=== PATIENT | female | born 1935 | race Caucasian/White ===

== ENCOUNTER 2020-05-05 02:10 | Inpatient (IN) ==
[2020-05-05] MEDS ORDERED: TRIAMCINOLONE ACETONIDE 15 APPL TUBE TP PRN (10:27)
[2020-05-05] MEDS ORDERED: NITROGLYCERIN 0.4 MG/TAB BTL SL PRN (10:27)
[2020-05-05] MEDS ORDERED: DEXAMETHASONE 4 MG TABLET PO SCH (10:30)
[2020-05-05] MEDS: amLODIPine BESYLATE 5 MG TABLET PO SCH (11:14)
[2020-05-05] MEDS: LEVOTHYROXINE SODIUM 50 MCG TABLET PO SCH (11:14)
[2020-05-05] MEDS: OXYBUTYNIN CHLORIDE 5 MG TABLET PO SCH ×2 (11:15→21:34)
[2020-05-05] MEDS: ENOXAPARIN SODIUM 40 MG/0.4 ML SYRG SC SCH (11:15)
[2020-05-05] MEDS: ASPIRIN 81 MG TAB.CHEW PO SCH (11:15)
--- NOTE | 2020-05-05 18:41 | HP ---
Chief Complaint - Chief Complaint Date of Service: 05/05/20 Time of Service: 09:10 Chief Complaint: Cough with shortness of breath, tachypnea History of Present Illness: This is an 85-year-old female who presented to [facility] ER at about 2:00 in the afternoon yesterday with precordial chest pain complaints. She was nauseated and short of breath and describes a pressure in her chest as a heaviness. She took some Tums which did not help. She took a nitroglycerin which relieved her discomfort. She also took a baby aspirin and then called EMS. She does not have known coronary disease but a warehouse worker had told her just in case she should have some nitroglycerin and so she was thankful she did. She has never had an episode like this before. Duration of symptoms was about 10 minutes. Her troponin was negative and there is no acute change on her EKG. They elected to admit her for acute coronary syndrome and rule out [place]. But then they did a Covid test and found it to be positive. 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 On arrival here, she is not having any chest discomfort but she is coughing and having some shortness of breath. She believes the onset of her symptoms from a respiratory perspective occurred about 3 days ago. She has a positive D-dimer and her inflammatory markers are high. She is alert and conversant and comfortable on 2 L nasal cannula O2 which is keeping her O2 sat in the mid 90s. She is tired and sleepy from the having been up most of the night and is hungry and she had not eaten since yesterday. Medical History (Last Updated 05/05/20 @ 02:57 by Deepti Cha RN) Abnormal stress echo exercise stress echo 04/20/16, mild anteroseptal hypokinesis at peak exercise, normal LV function Acute ankle pain Adjustment disorder with mixed anxiety and depressed mood Arthritis Benign essential HTN Chronic GERD Dyspnea on exertion Echocardiogram abnormal 06/19/2014-EF 55-60% and09/21/2018- EF 55-60%, mod TR, severe pulm HTN Female genital prolapse Hyperlipidemia Hypothyroidism Kidney stones Normal nuclear stress test 09/21/2018 Open fracture of radius and ulna Left Seasonal allergies Surgical History: Surgical History (Last Updated 05/05/20 @ 02:56 by Deepti Cha RN) Enterocele Repaired 1999 H/O colonoscopy 01/27/16 and 2009 H/O cystoscopy 09/27/15 H/O esophagogastroduodenoscopy H/O hernia repair 2004 H/O lithotripsy cystoureteroscopy with lithotripsy 09/29/15 H/O oophorectomy 1977 H/O: hysterectomy 1977 History of bladder surgery 1998-bladder and anterior posterior repair History of cataract extraction with lens replacement Left eye 01/25/18, Right eye 11/30/17 Family History: Family History (Last Updated 05/05/20 @ 02:59 by Deepti Cha RN) Daughter Breast cancer Sister Pancreatic cancer Brother Colon cancer Social History: (Last Updated 05/05/20 @ 03:00 by Deepti Cha RN) Social History: household members: none Tobacco: Smoking Status: Former smoker Review Of Systems (GEN) - Review of Systems Generalized/Overall Review: Present: Weakness, Chills, Fever - No EENTM: Present: No Symptoms Reported - Have not heard the word from Respiratory: Present: No Symptoms Reported - this is typical and the hospitalist call immediately probably in the middle of as mother know still finishing up this morning's admissions about the [employer] okay Cardiac: Present: Chest Pain - Resolved Abdominal: Present: Nausea - Resolved Genitourinary: Present: No Symptoms Reported Musculoskeletal: Present: No Symptoms Reported Neurological: Present: Weakness Skin: Present: No Symptoms Reported Endocrine: Present: No Symptoms Reported Allergies/Adverse Reactions: Allergies Allergy/AdvReac Type Severity Reaction Status Date / Time ciprofloxacin AdvReac Verified 05/05/20 02:20 erythromycin base AdvReac Verified 05/05/20 02:21 hydrocodone AdvReac Vomiting Verified 05/05/20 02:21 ibuprofen [From Motrin] AdvReac Verified 05/05/20 02:22 Home Medications: HOME MEDICATIONS Amlodipine Besylate 5 mg PO DAILY 05/05/20 [Last Taken Unknown] Aspirin 81 mg PO DAILY 05/05/20 [Last Taken Unknown] Cyanocobalamin (Vitamin B-12) [Vitamin B-12] 1,000 mcg PO DAILY 05/05/20 [Last Taken Unknown] Levothyroxine Sodium [Synthroid] 50 mcg PO DAILY 05/05/20 [Last Taken Unknown] Nitroglycerin 0.4 mg SUBLINGUAL Q5MIN PRN 05/05/20 [Last Taken Unknown] Oxybutynin Chloride [Oxybutynin Chloride ER] 5 mg PO DAILY 05/05/20 [Last Taken Unknown] Simvastatin 40 mg PO HS 05/05/20 [Last Taken Unknown] Triamcinolone Acetonide [Kenalog 0.1% Cream] 1 appl TOPICAL DAILY 05/05/20 [Last Taken Unknown] Exam - Exam Vital Signs: Vital Signs - Last Taken Temp 37 C 05/05/20 18:02 Pulse 63 05/05/20 18:02 Resp 17 05/05/20 18:02 BP 156/69 H 05/05/20 18:02 Pulse Ox 93 05/05/20 18:02 Constitutional: Present: Alert, Oriented x3, Cooperative, Well developed, Well nourished, Elderly ENT Exam: Present: normal ENT inspection, hearing grossly normal, pharynx normal, TMs normal Eye Exam: bilateral eye: normal inspection, PERRL, EOMI Neck: Present: non-tender, full range of motion, supple, normal inspection Back Exam: Present: normal inspection, no CVA tenderness, no vertebral tenderness Breasts: Present: Exam deferred Respiratory: Present: chest non-tender, rhonchi, No wheezing Cardiovascular/Chest: Present: normal peripheral pulses, regular rate, rhythm, no chest tenderness, no edema, no gallop, no JVD, no murmur, no rub Peripheral Pulses: carotid (R): 2+, carotid (L): 2+, radial (R): 2+, radial (L): 2+ Abdomen: Present: Normal bowel sounds, soft, nontender, nondistended, no rebound tenderness, no hepatospenomegaly, no masses /Rectal: Present: Exam deferred Extremity: Present: normal range of motion, non-tender, normal inspection, no pedal edema, no calf tenderness, normal capillary refill Skin Exam: Present: normal color, warm/dry, no cyanosis Lymphatic: Present: no adenopathy Neurologic: Present: lead sales consultant II-XII nml as tested Appearance: Present: appropriate appearance, appropriate insight, neat, no m taylor impairment Eye contact: Present: cooperative, good eye contact, normal speech Thoughts: Present: normal thought pattern, no apparent hallucination Assessment/Plan - Narrative Narrative: 1. Admitted to SCU 3 in negative pressure room 2. Start dexamethasone 6 mg/day 3. Start enoxaparin 4. Continue usual home meds 5. Regular diet 6. Wean from oxygen as tolerated - Assessment/Plan (1) COVID-19 virus detected Problem: Acute (2) Pneumonia due to COVID-19 virus Problem: Acute (3) Dyspnea Problem: Acute Qualifiers: Dyspnea type: dyspnea on exertion Qualified Code(s): R06.00 - Dyspnea, unspecified (4) Chest pain Problem: Acute Qualifiers: Chest pain type: other chest pain Qualified Code(s): R07.89 - Other chest pain (5) Positive D dimer Problem: Acute
[2020-05-05] MEDS: SIMVASTATIN 40 MG TABLET PO SCH (21:34)
[2020-05-06] MEDS: LEVOTHYROXINE SODIUM 50 MCG TABLET PO SCH (08:02)
[2020-05-06 08:27] LABS: Hematocrit 45.4 % (37.0-47.0); Hemoglobin 13.9 gm/dL (12.5-16.0); Mean Cell Volume 95.8 fl (78-100); Mean Corpuscular Hemoglobin 29.3 pg (27-31); Mean Corpuscular Hgb Conc 30.6 g/dl (32-36); Mean Platelet Volume 8.8 fl (8-12.5); Neutrophil # 3.5 K/mm3 (1.3-6.0); Neutrophil % 59.5 % (42-75.0); Platelet Count 204 K/mm3 (150-450); Red Blood Count 4.74 M/mm3 (4.2-5.4); Red Cell Distribution Width 13.4 % (11.5-14.0); White Blood Count 5.9 K/mm3 (4.0-10.5)
[2020-05-06 08:41] LABS: ALT 17 U/L (19-67); AST 24 U/L (0-48); Albumin * 3.1 gm/dl (3.4-5.0); Alkaline Phosphatase * 51 U/L (50-170); Anion Gap 10.5 mmol/L (6.8-13.8); BUN/Creatinine Ratio 20.5 (9.0-21.6); Bilirubin, Total 0.7 mg/dL (0.0-1.1); Blood Urea Nitrogen 16 mg/dL (3-23); Ca. Corrected For Albumin 9.8 mg/dL (8.4-10.2); Calcium * 9.4 mg/dL (7.9-10.9); Carbon Dioxide 29.5 mmol/L (24-32.6); Chloride 105 mmol/L (97-106); Glucose * 89 mg/dL (70-110); Sodium 141 mmol/L (132-142); Total Protein 6.6 gm/dL (6.2-8.2)
[2020-05-06] MEDS: ENOXAPARIN SODIUM 40 MG/0.4 ML SYRG SC SCH (10:07)
[2020-05-06] MEDS: ASPIRIN 81 MG TAB.CHEW PO SCH (10:07)
[2020-05-06] MEDS: OXYBUTYNIN CHLORIDE 5 MG TABLET PO SCH ×2 (10:07→21:22)
[2020-05-06] MEDS: DEXAMETHASONE 4 MG, DEXAMETHASONE 2 MG PO SCH ×2 (10:07)
[2020-05-06] MEDS: amLODIPine BESYLATE 5 MG TABLET PO SCH (10:07)
--- NOTE | 2020-05-06 15:32 | PN ---
Subjective - Date and Time Seen Date: 05/06/20 Time: 12:45 Subjective Narrative: Analy had an uneventful night and is felt well this morning. She feels like she is breathing better and that she has not had any further chest discomfort. She is in no distress at the time of my exam. Her vital signs have been stable and she remained afebrile. The skin is warm dry and pink. Heart has a regular rate and rhythm without murmur. Lungs are clear this morning. The rales are heard yesterday seem to be gone. She has not been up to walk to see if she becomes dyspneic with exertion. Her sed rate is only 16. Her chest x-ray shows no acute cardiopulmonary circumstance. I think she may well be within the first week of her Covid infection and I have advised her that many times a second week seems to be more difficult. Nonetheless if she has a good day today and a good night tonight and does not need oxygen as she can probably be discharged to self quarantine at home. Objective - Review of Systems Generalized/Overall Review: Reports: No Symptoms Reported EENTM: Reports: No Symptoms Reported Respiratory: Reports: No Symptoms Reported, Cough, Shortness of Breath - With exertion Cardiac: Reports: No Symptoms Reported. Denies: Chest Pain - She has had no more chest pain since being in the ER in [facility] Abdominal: Reports: No Symptoms Reported Genitourinary Symptoms: Reports: No Symptoms Reported Musculoskeletal Complaints: Reports: No Symptoms Reported Neurological: Reports: No Symptoms Reported Skin: Reports: No Symptoms Reported Endocrine: Reports: No Symptoms Reported - Vitals Vitals: Last Vital Signs Temp 35.8 C L 05/06/20 11:15 Pulse 48 L 05/06/20 11:15 Resp 24 H 05/06/20 11:15 BP 126/59 05/06/20 11:15 Pulse Ox 95 05/06/20 11:15 - Abnormal Lab Findings Abnormal Lab Findings: Abnormal Lab Results 05/06/20 05/06/20 05/06/20 Range/Units 08:15 08:15 08:15 MCHC 30.6 L (32-36) g/dl Monocytes % 14.7 H (0.0-9) % ESR 16 H (0-15) mm/hr ALT 17 L (19-67) U/L Albumin 3.1 L (3.4-5.0) gm/dl - EKG/Xray Findings XRAY: chest - No acute cardiopulmonary changes Interpretation: Reviewed by me - Exam Constitutional: Present: Alert, Oriented x3, Cooperative, Well developed, Well nourished, No distress ENT Exam: Present: normal ENT inspection, hearing grossly normal, pharynx normal, TMs normal, hard of hearing Neck: Present: non-tender, full range of motion, supple, normal inspection, trachea midline Breasts: Present: Exam deferred Respiratory: Present: chest non-tender, lungs clear, normal breath sounds, no respiratory distress, no accessory muscle use Cardiovascular/Chest: Present: normal peripheral pulses, regular rate, rhythm, no chest tenderness, no edema, no gallop, no JVD, no murmur, no rub Abdomen: Present: Normal bowel sounds, soft, nontender, nondistended, no rebound tenderness, no hepatospenomegaly, no masses /Rectal: Present: Exam deferred Extremity: Present: normal range of motion, non-tender, normal inspection, no pedal edema, no calf tenderness, normal capillary refill Skin Exam: Present: normal color, warm/dry, no cyanosis Lymphatic: Present: no adenopathy Neurologic: Present: patient registration representative II-XII nml as tested, normal cerebellar test Appearance: Present: appropriate appearance, appropriate insight, neat Eye contact: Present: cooperative, good eye contact, normal speech Thoughts: Present: normal thought pattern, no apparent hallucination Assessment/Plan Plan Narrative: 1. Mrs. Diane is feeling quite a lot better today. She has had no reported fever or chills. She has not had any further episodes of chest discomfort. 2. Start on Eliquis 10 mg twice daily 3. Discontinue enoxaparin 4. Continue monitoring O2 sats 5. Progress activity in her room - Problems/Diagnosis (1) COVID-19 virus detected Problem: Acute (2) Pneumonia due to COVID-19 virus Problem: Acute (3) Dyspnea Problem: Acute Qualifiers: Dyspnea type: dyspnea on exertion Qualified Code(s): R06.00 - Dyspnea, unspecified (4) Chest pain Problem: Acute Qualifiers: Chest pain type: other chest pain Qualified Code(s): R07.89 - Other chest pain (5) Positive D dimer Problem: Acute
[2020-05-06] MEDS ORDERED: ALUMINUM HYDROX PO PRN (18:43)
[2020-05-06] MEDS ORDERED: BISACODYL 5 MG TABLET.DR PO ONE (18:43)
[2020-05-06] MEDS ORDERED: ALGIN PO PRN (18:43)
[2020-05-06] MEDS ORDERED: MAG CARB PO PRN (18:43)
[2020-05-06] MEDS: APIXABAN 5 MG TABLET PO SCH (21:22)
[2020-05-06] MEDS: SIMVASTATIN 40 MG TABLET PO SCH (21:22)
[2020-05-07] MEDS: LEVOTHYROXINE SODIUM 50 MCG TABLET PO SCH (06:24)
[2020-05-07 06:43] LABS: Hematocrit 44.1 % (37.0-47.0); Mean Cell Volume 94.6 fl (78-100); Mean Corpuscular Hgb Conc 31.7 g/dl (32-36); Mean Platelet Volume 8.8 fl (8-12.5); Neutrophil # 4.1 K/mm3 (1.3-6.0); Neutrophil % 63.7 % (42-75.0); Platelet Count 179 K/mm3 (150-450); Red Blood Count 4.66 M/mm3 (4.2-5.4); Red Cell Distribution Width 13.6 % (11.5-14.0); White Blood Count 6.4 K/mm3 (4.0-10.5)
[2020-05-07 06:54] LABS: Anion Gap 11.7 mmol/L (6.8-13.8); BUN/Creatinine Ratio 25.4 (9.0-21.6); Bilirubin, Total 0.8 mg/dL (0.0-1.1); Ca. Corrected For Albumin 9.7 mg/dL (8.4-10.2); Calcium * 9.2 mg/dL (7.9-10.9); Carbon Dioxide 26.2 mmol/L (24-32.6); Potassium 3.9 mmol/L (3.4-4.6); Total Protein 6.4 gm/dL (6.2-8.2)
[2020-05-07] MEDS: OXYBUTYNIN CHLORIDE 5 MG TABLET PO SCH (09:53)
[2020-05-07] MEDS: ASPIRIN 81 MG TAB.CHEW PO SCH (09:53)
[2020-05-07] MEDS: DEXAMETHASONE 4 MG, DEXAMETHASONE 2 MG PO SCH ×2 (09:53)
[2020-05-07] MEDS: amLODIPine BESYLATE 5 MG TABLET PO SCH (10:09)
--- NOTE | 2020-05-07 12:39 | DS ---
(1) COVID-19 virus detected Problem: Acute (2) Pneumonia due to COVID-19 virus Problem: Acute (3) Dyspnea Problem: Acute Qualifiers: Dyspnea type: dyspnea on exertion Qualified Code(s): R06.00 - Dyspnea, un specified (4) Chest pain Problem: Acute Qualifiers: Chest pain type: other chest pain Qualified Code(s): R07.89 - Other chest pain (5) Positive D dimer Problem: Acute (6) Bradycardia Problem: Acute Date of Discharge:: 05/07/20 Hospital Course: This is an 85-year-old female who presented to [facility] ER at about 2:00 in the afternoon yesterday with precordial chest pain complaints. She was nauseated and short of breath and describes a pressure in her chest as a heaviness. She took some Tums which did not help. She took a nitroglycerin which relieved her discomfort. She also took a baby aspirin and then called EMS. She does not have known coronary disease but a pulmonary physical therapist had told her just in case she should have some nitroglycerin and so she was thankful she did. She has never had an episode like this before. Duration of symptoms was about 10 minutes. Her troponin was negative and there is no acute change on her EKG. They elected to admit her for acute coronary syndrome and rule out [place]. But then they did a Covid test and found it to be positive. 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 On arrival here, she is not having any chest discomfort but she is coughing and having some shortness of breath. She believes the onset of her symptoms from a respiratory perspective occurred about 3 days ago. She has a positive D-dimer and her inflammatory markers are high. She is alert and conversant and comfortable on 2 L nasal cannula O2 which is keeping her O2 sat in the mid 90s. She is tired and sleepy from the having been up most of the night and is hungry and she had not eaten since yesterday The D-dimer done at [place] was just barely elevated at 0.56 and repeated today is 0.32 which is normal. To sed rates have been done and both show very little inflammation of any with values of 17 and 16. White count has been normal. She has been afebrile. She has not needed oxygen since the day of admission. She did have an bradycardia while sleeping last night and her heart rate was down in the 30s and this morning when awake was in the 40s. At the time of my visit her heart rate is 59 bpm and normal sinus rhythm. She is asymptomatic with the bradycardia. She has seen Dr. Cortez in the past and will follow up with him regarding this bradycardia issue. I doubt any treatment will be done unless she gets symptomatic with it. Since she is on room air and in no distress I think she can finish the rest of her Covid management at home by self quarantining for the next couple of weeks. I will continue her on dexamethasone 6 mg dailyXs [address] her on aspirin for the next month and hopefully she will see Dr. Cortez within that time. He can determine whether she should stay on anticoagulant therapy or not at that point. Nargis Diane is confined to home due to active COVID-19 infection. She will be self quarantining for the next 2 weeks. She is also having episodes of chest pain and bradycardia while sleeping. She is asymptomatic with her bradycardia. She will see Dr. Cortez within the next month for further evaluation. The need for senior care is monitoring of vital signs, monitoring her breath sounds and symptoms of COVID-19 as they may will worsen before her infection is resolved. The need for physical therapy is limb strengthening and gait retraining. The need for home health care skilled services is directly related to the time spent [id number] with the person. Procedures Performed: none Results and Findings: Lab Pending Results 05/06/20 08:15: WBC 5.9, RBC 4.74, Hgb 13.9, Hct 45.4, MCV 95.8, MCH 29.3, MCHC 30.6 L, RDW 13.4, Plt Count 204, MPV 8.8, Immature Gran % (Auto) 0.20, Immature Gran # (Auto) 0.01, Neutrophils % 59.5, Lymphocytes % 25.4, Monocytes % 14.7 H, Eosinophils % 0.0, Basophils % 0.2, Nucleated RBC % 0.0, Neutrophils # 3.5, Lymphocytes # 1.50, Monocytes # 0.9, Eosinophils # 0.0, Absolute Basophils 0.0 05/06/20 08:15: ESR 16 H 05/06/20 08:15: Sodium 141, Plasma Sodium 141, Potassium 4.0, Chloride 105, Carbon Dioxide 29.5, Anion Gap 10.5, BUN 16, Creatinine 0.78, Est GFR (Non-Af Amer) 75, BUN/Creatinine Ratio 20.5, Random Glucose 89, Calcium 9.4, Calcium Adj for Albumin 9.8, Total Bilirubin 0.7, AST 24, ALT 17 L, Alkaline Phosphatase 51, C-Reactive Prot, Quant Less than 0.2, Total Protein 6.6, Albumin 3.1 L 05/07/20 06:36: WBC 6.4, RBC 4.66, Hgb 14.0, Hct 44.1, MCV 94.6, MCH 30.0, MCHC 31.7 L, RDW 13.6, Plt Count 179, MPV 8.8, Immature Gran % (Auto) 0.30, Immature Gran # (Auto) 0.02, Neutrophils % 63.7, Lymphocytes % 24.1, Monocytes % 11.7 H, Eosinophils % 0.0, Basophils % 0.2, Nucleated RBC % 0.0, Neutrophils # 4.1, Lymphocytes # 1.55, Monocytes # 0.8, Eosinophils # 0.0, Absolute Basophils 0.0 05/07/20 06:36: ESR 17 H 05/07/20 06:36: Sodium 139, Plasma Sodium 139, Potassium 3.9, Chloride 105, Carbon Dioxide 26.2, Anion Gap 11.7, BUN 17, Creatinine 0.67, Est GFR (Non-Af Amer) 89, BUN/Creatinine Ratio 25.4 H, Random Glucose 90, Calcium 9.2, Calcium Adj for Albumin 9.7, Total Bilirubin 0.8, AST 26, ALT 21, Alkaline Phosphatase 54, Total Protein 6.4, Albumin 3.0 L 05/07/20 06:36: D-Dimer 0.32 Discharge Location: Home Disposition: Home Health Service Home Health Agency: [facility] Home Health Condition: Good Face to Face Encounter completed per CMS Guidelines: Yes Discharge Activity: Activity as tolerated Discharge Diet: General/regular food Problem Oriented Discharge Instructions to Patient/Family: COVID-19 Additional Patient Instructions (free text): [facility] Home Health at discharge- fax face sheet, H&P, discharge summary, and medications and call report. Follow up appointment with NEVAEH De La Rosa at the [facility] on May 20 at 4 PM- please fax records from stay to [phone]. Prescriptions (Any new or edited meds): Aspirin [Aspirin EC] 325 mg PO DAILY #30 tablet. Transmission Status: Received by [place], [place] Dexamethasone 6 mg PO DAILY #8 tab Transmission Status: Received by [place] Complete Home Medications List: Complete Home Medication List: Amlodipine Besylate 5 mg PO DAILY 05/05/20 Cyanocobalamin (Vitamin B-12) [Vitamin B-12] 1,000 mcg PO DAILY 05/05/20 Levothyroxine Sodium [Synthroid] 50 mcg PO DAILY 05/05/20 Nitroglycerin 0.4 mg SUBLINGUAL Q5MIN PRN 05/05/20 Oxybutynin Chloride [Oxybutynin Chloride ER] 5 mg PO DAILY 05/05/20 Simvastatin 40 mg PO HS 05/05/20 Triamcinolone Acetonide [Kenalog 0.1% Cream] 1 appl TOPICAL DAILY 05/05/20 Aspirin [Aspirin EC] 325 mg PO DAILY #30 tablet. 05/07/20 Dexamethasone 6 mg PO DAILY #8 tab 05/07/20
[2020-05-07 15:00] VITALS: BP 123/61
[2020-05-07] MEDS: APIXABAN 5 MG TABLET PO SCH (16:27)
== END 2020-05-07 15:44 | disposition home health service (06) | DRG 177 ==
LOC: SCU 02:10
PROVIDERS: ADMIT Family Medicine; ATTEND Family Medicine